=== PATIENT | male | born 1970 | race Caucasian/White ===

== ENCOUNTER 2019-12-17 12:45 | Emergency (ER) | payer OTHER, MEDICAID ==
[~2019-12-17] VITALS: Ht 165.1 cm; Wt 73.0 kg
[2019-12-17] MEDS ORDERED: IBUPROFEN 600MG TABLET PO STA (13:29)
[2019-12-17] MEDS ORDERED: BACITRACIN ZINC OINT UDPKT TOP ONE (13:45)
[2019-12-17] MEDS ORDERED: LIDOCAINE HCL/PF 1% 10 MG/ML 5ML VIAL IJ ONE (13:45)
[2019-12-17 13:49] VITALS: BP 148/83
== END 2019-12-17 14:10 | disposition home or self-care (01) ==
LOC: ER 12:45
DX: R19.07 Generalized intra-abdominal and pelvic swelling, mass and lump (principal); Z98.890 Other specified postprocedural states
CPT/HCPCS: 99283; J3490

== ENCOUNTER 2023-11-23 17:19 | Emergency (ER) | payer OTHER, MEDICAID ==
[~2023-11-23] VITALS: Ht 167.6 cm; Wt 70.3 kg
[2023-11-23 17:41] VITALS: O2SAT 98
[2023-11-23 19:36] LABS: BASOPHILS % 0.7 % (0.0-2.0); EOSINOPHILS % 6.8 % (0.0-5.0); HEMATOCRIT. 45.8 % (42.0-52.0); HEMOGLOBIN. 15.3 g/dL (14.0-18.0); LYMPHOCYTES % 46.5 % (20.0-50.0); MEAN CORPUSCULAR HEMOGLOBIN 31.5 pg (28.0-32.0); MEAN CORPUSCULAR HGB CONC 33.3 g/dL (31.0-37.0); MEAN CORPUSCULAR VOLUME 94.6 fL (80.0-94.0); MONOCYTES % 11.2 % (2.0-8.0); NEUTROPHILS % 34.8 % (40.0-76.0); PLATELET 228 x1000/uL (130-400); RED BLOOD CELL COUNT 4.85 mill/uL (4.7-6.1); RED CELL DISTRIBUTION WIDTH 14.4 % (11.6-14.6); WHITE BLOOD COUNT 6.8 x1000/uL (4.5-11.0)
[2023-11-23 19:41] LABS: CARBON DIOXIDE 25 mEq/L (21-32); CHLORIDE 108 mEq/L (98-107); POTASSIUM 4.1 mEq/L (3.5-5.1); SODIUM 137 mEq/L (136-145)
[2023-11-23 19:42] LABS: CALCIUM 8.9 mg/dL (8.7-10.4)
[2023-11-23 19:46] LABS: CREATININE 0.8 mg/dL (0.6-1.3); GLUCOSE 107 mg/dL (70-105)
[2023-11-23 19:47] LABS: UREA NITROGEN BLOOD 6 mg/dL (9-23)
[2023-11-23 19:48] LABS: ALANINE AMINOTRANSFERASE 32 IU/L (10-49); ALBUMIN 4.4 g/dL (3.2-4.8); ASPARTATE AMINOTRANSFERASE 35 IU/L (<34)
[2023-11-23 19:49] LABS: BILIRUBIN TOTAL 0.3 mg/dL (0.1-1.0); PROTEIN TOTAL 7.2 g/dL (6.0-8.3)
[2023-11-23] MEDS: ONDANSETRON 4MG ODT PO ONE (20:01)
[2023-11-23] MEDS: ACETAMINOPHEN 325MG TABLET PO ONE (20:01)
[2023-11-23] MEDS ORDERED: ONDA4TAB11 PO (20:17)
[2023-11-23 20:31] VITALS: BP 133/81; PULSE 55; RESP 16; TEMP 97.9
== END 2023-11-23 20:40 | disposition home or self-care (01) ==
LOC: ER 17:19
DX: R11.2 Nausea with vomiting, unspecified (principal); R19.7 Diarrhea, unspecified; E11.9 Type 2 diabetes mellitus without complications; E78.00 Pure hypercholesterolemia, unspecified
CPT/HCPCS: 99283; 80053; 83690; 85025; 36415; Q0162